=== PATIENT | male | born 1945 | race Caucasian/White ===

== ENCOUNTER 2016-10-29 14:04 | Emergency (ER) | payer OTHER, MEDICARE ==
[2016-10-29 14:11] VITALS: BP 146/90; PULSE 85; TEMP 97.4; BMI 31.9
--- NOTE | 2016-10-29 14:58 | PDOC ---
History of Present Illness - General History Source: Patient, Old Records Exam Limitations: No Limitations <Brittany Lazaro - Last Filed: 10/29/16 14:53> - General History Source: Patient, Old Records, Primary Care Provider Exam Limitations: No Limitations - History of Present Illness Initial Comments: 10/29/16 15:00 The patient is a 70 year old male, with a significant past medical history of HTN, DVT and colitis, who presents to the emergency department with bilateral lower extremity swelling for the past 2 days. He states that his PMD sent him in for a vascular study due to the swelling, revealing bilateral DVTs. He was sent to the ED for further evaluation. He reports that he has been taking Eliquis for over a year due to a blood clot in his right lower extremity but discontinued use for the past 2 weeks because he was getting an injection for a herniated disc. He notes that he restarted Eliquis today. The patient denies chest pain, shortness of breath, headache and dizziness. Denies fever, chills, nausea, vomit, diarrhea and constipation. Denies dysuria, frequency, urgency and hematuria. Allergies: Sulfa Past surgical history: Right hip and knee replacement. Right inguinal hernia repair. Social history: No alcohol, tobacco or drug use reported PMD - Dr. 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) Cardiac Disorders: No CVA: No COPD: No CHF: No Dementia: No Diabetes: No GI Disorders: Yes (ULCERATIVE COLITIS) Disorders: No HTN: Yes Hypercholesterolemia: No Liver Disease: No Seizures: No Thyroid Disease: No Other medical history: DVT - Surgical History Abdominal Surgery: Yes (REPAIR UMBILICAL HERNIA,RIGHT INGUINAL HERNIA) Appendectomy: No Cardiac Surgery: No Cholecystectomy: No Lung Surgery: No Neurologic Surgery: No Orthopedic Surgery: Yes (RIGHT HIP AND KNEE REPLACEMENT) - Psycho/Social/Smoking Cessation Hx Anxiety: No Suicidal Ideation: No Smoking History: Former smoker Have you smoked in the past 12 months: No If you are a former smoker, when did you quit?: 40 YRS Information on smoking cessation initiated: No Hx Alcohol Use: No Drug/Substance Use Hx: No Substance Use Type: None Hx Substance Use Treatment: No <Brittany Lazaro - Last Filed: 10/29/16 14:53> <Zelalem Montemayor - Last Filed: 10/29/16 15:01> - Past Medical History Allergies/Adverse Reactions: Allergies Allergy/AdvReac Type Severity Reaction Status Date / Time balsalazide [Balsalazide] Allergy Mild Vomiting, Verified 10/29/16 14:11 body blisters Sulfa (Sulfonamide Allergy Mild "whole Verified 10/29/16 14:11 Antibiotics) body blister" Home Medications: Ambulatory Orders Amlodipine Besylate 10 mg PO DAILY 05/25/15 Mesalamine [Apriso] 0.375 gm PO QID #30 cap.er.24h 05/25/15 Apixaban [Eliquis] 5 mg PO BID 10/29/16 Review of Systems - Review of Systems Able to Perform ROS?: Yes Comments:: 10/29/16 15:00 GENERAL/CONSTITUTIONAL: No fever or chills. No weakness. HEAD, EYES, EARS, NOSE AND THROAT: No change in vision. No ear pain or discharge. No sore throat. CARDIOVASCULAR: No chest pain or shortness of breath RESPIRATORY: No cough, wheezing, or hemoptysis. GASTROINTESTINAL: No nausea, vomiting, diarrhea or constipation. GENITOURINARY: No dysuria, frequency, or change in urination. MUSCULOSKELETAL: No joint or muscle swelling or pain. No neck or back pain. EXTREMITIES: +Bilateral lower extremity edema. SKIN: No rash NEUROLOGIC: No headache, vertigo, loss of consciousness, or change in strength/ sensation. ENDOCRINE: No increased thirst. No abnormal weight change HEMATOLOGIC/LYMPHATIC: No anemia, easy bleeding, or history of blood clots. ALLERGIC/IMMUNOLOGIC: No hives or skin allergy. <Zelalem Montemayor - Last Filed: 10/29/16 15:01> *Physical Exam - Vital Signs Last Vital Signs Temp Pulse Resp BP Pulse Ox 97.4 F L 85 20 146/90 98 10/29/16 14:06 10/29/16 14:06 10/29/16 14:06 10/29/16 14:06 10/29/16 14:06 <Brittany Lazaro - Last Filed: 10/29/16 14:53> - Vital Signs Last Vital Signs Temp Pulse Resp BP Pulse Ox 97.4 F L 85 20 146/90 98 10/29/16 14:06 10/29/16 14:06 10/29/16 14:06 10/29/16 14:06 10/29/16 14:06 - Physical Exam Comments: 10/29/16 15:00 GENERAL: Awake, alert, and fully oriented, in no acute distress HEAD: No signs of trauma, normocephalic, atraumatic EYES: PERRLA, EOMI, sclera anicteric, conjunctiva clear ENT: Auricles normal inspection, hearing grossly normal, nares patent, oropharynx clear without exudates. Moist mucosa NECK: Normal ROM, supple, no lymphadenopathy, JVD, or masses LUNGS: No distress, speaks full sentences, clear to auscultation bilaterally HEART: Regular rate and rhythm, normal S1 and S2, no murmurs, rubs or gallops, peripheral pulses normal and equal bilaterally. ABDOMEN: Soft, nontender, normoactive bowel sounds. No guarding, no rebound. No masses EXTREMITIES: +Bilateral lower extremity swelling, left greater than right, with trace bipedal edema. Normal inspection, Normal range of motion. No clubbing or cyanosis. NEUROLOGICAL: Cranial nerves II through XII grossly intact. Normal speech, normal gait, no focal sensorimotor deficits SKIN: Warm, Dry, normal turgor, no rashes or lesions noted. <Zelalem Montemayor - Last Filed: 10/29/16 15:01> Medical Decision Making - Medical Decision Making 10/29/16 14:53 70-year-old male with history of DVT and hypertension presents the emergency department with bilateral lower extremity swelling and positive bilateral DVT on vascular study done just prior to arrival to the ED today. The patient restarted taking his Eliquis today however he does not want to stay for hospital admission because he has to go to work. I have explained the risks and consequences to him leaving AGAINST MEDICAL ADVICE and he is alert and oriented 3 and understands that he is taking a risk by leaving AGAINST MEDICAL ADVICE. I have also instructed him to maintain his current Eliquis dose. I have spoken to Dr. Messina who is his primary care physician and have informed him that the patient wants to leave AGAINST MEDICAL ADVICE. Dr. Messina will see him in his office Monday or Monday. I have spoken to the patient about the follow-up plan and he is in agreement. I have also advised the patient to return to the emergency department if his symptoms persist, worsen, or new symptoms arise. <Brittany Lazaro - Last Filed: 10/29/16 14:53> - Medical Decision Making 10/29/16 15:00 Dr. Donell Messina was consulted regarding the patient at 2:47pm [phone] <Zelalem Montemayor - Last Filed: 10/29/16 15:01> *DC/Admit/Observation/Transfer - Discharge Dispostion Admit: No - Attestations Physician Attestion: 10/29/16 14:56 I, Dr. Brittany Lazaro, attest that the scribes documentation that appears above has been prepared under my direction and personally reviewed by me in its entirety. I confirmed that the note above accurately reflects all work, treatment, procedures, and medical decision-making performed by me. <Brittany Lazaro - Last Filed: 10/29/16 14:53> - Attestations Scribe Attestion: 10/29/16 15:01 Documentation prepared by Zelalem Montemayor, acting as medical billing coordinator for Brittany Lazaro MD <Zelalem Montemayor - Last Filed: 10/29/16 15:01> Diagnosis at time of Disposition: DVT, bilateral lower limbs - Discharge Dispostion Disposition: AGAINST MEDICAL ADVICE Condition at time of disposition: Stable - Referrals Referrals: Erich Messina MD [Primary Care Provider] - - Patient Instructions Printed Discharge Instructions: DI for Deep Vein Thrombosis Additional Instructions: You have been diagnosed with deep vein thrombosis in both of your lower extremities. Even though your signing out AGAINST MEDICAL ADVICE we are advising you to continue taking her Eliquis 5 mg twice daily. Please follow-up with Dr. Messina either on Monday or Monday. Please come to the emergency department if your symptoms persist, worsen, or new symptoms arise such as chest pain or shortness of breath.
== END 2016-10-29 15:03 | disposition left against medical advice (07) ==
LOC: JER 14:04
DX: I82.493 Acute embolism and thrombosis of other specified deep vein of lower extremity, bilateral (principal); I10 Essential (primary) hypertension; Z79.01 Long term (current) use of anticoagulants
CPT/HCPCS: 93970-TC; 99282-25